=== PATIENT | male | born 1990 | race Caucasian/White ===

== ENCOUNTER 2021-03-21 18:26 | Emergency (ER) | payer OTHER ==
[~2021-03-21] VITALS: Ht 177.8 cm; Wt 80.0 kg
[2021-03-21 18:28] VITALS: BP 152/92
--- NOTE | 2021-03-21 18:48 | NUR ---
REPORT TO DENZEL RAMÍREZ.
--- NOTE | 2021-03-21 18:59 | NUR ---
PT. SITTING ON GURNEY WITH NO DISTRESS NOTED. NEURO INTACT. AWAITING WORK COMP PAPERWORK COMPLETION FOR D/C.
== END 2021-03-21 19:09 | disposition home or self-care (01) ==
LOC: ED 19:00
DX: S09.90XA Unspecified injury of head, initial encounter (principal); Y04.8XXA Assault by other bodily force, initial encounter; Y93.89 Activity, other specified; Y92.69 Other specified industrial and construction area as the place of occurrence of the external cause; Y99.8 Other external cause status
CPT/HCPCS: 99281